=== PATIENT | female | born 1960 | race Caucasian/White ===

== ENCOUNTER 2021-03-22 06:07 | Observation (INO) ==
[2021-03-22] MEDS ORDERED: cefOXitin 2,000 MG in Water for inj. (sterile) 10 ML IVP ONE (06:25)
[2021-03-22] MEDS ORDERED: Ringers Solution, Lactated 1,000 ML IVC SCH (06:30)
[2021-03-22] MEDS ORDERED: *HR* HYDROmorphone PF 0.5 MG/0.5 ML SYRINGE IVP PRN (07:10)
[2021-03-22] MEDS ORDERED: *HR* FentaNYL (PF) 100 MCG/2 ML VIAL ONE ×3 (07:15→12:52)
[2021-03-22] MEDS ORDERED: *HR* Propofol 200 MG/20 ML VIAL IVP ONE (07:15)
[2021-03-22] MEDS ORDERED: *HR* Midazolam HCl 2 MG/2 ML VIAL ONE (07:15)
[2021-03-22] MEDS ORDERED: Scopolamine Patch 1.5 MG PATCH.TD72 TD ONE (07:16)
[2021-03-22] MEDS ORDERED: Lidocaine -MPF 2% 2 ML VIAL ONE (07:16)
[2021-03-22] MEDS ORDERED: Ondansetron 4 MG/2 ML VIAL ONE (07:16)
[2021-03-22] MEDS ORDERED: *HR* Rocuronium Bromide 50 MG/5 ML VIAL ONE (07:16)
[2021-03-22] MEDS ORDERED: Lidocaine HCL 4 ML Topical Solution (Laryng-O-Jet Kit Sterile Pak) TP ONE (07:16)
[2021-03-22] MEDS ORDERED: Acetaminophen IV 1,000 MG/100 ML BAG IVPB ONE (07:18)
[2021-03-22] MEDS ORDERED: Lidocaine/EPI 1:100k 1% 30 ML VIAL ONE (07:29)
[2021-03-22] MEDS ORDERED: *HR* Belladonna Alkaloids/Opium 30 MG RECTAL SUPPOSITORY RC ONE (07:30)
[2021-03-22] MEDS ORDERED: *HR* Remifentanil 1 MG VIAL IVP ONE (07:38)
[2021-03-22] MEDS ORDERED: Sugammadex Sodium 200 MG/2 ML VIAL IV ONE (09:04)
[2021-03-22] MEDS ORDERED: *HR* HYDROMORPHONE 2 MG/ML VIAL ONE (09:05)
[2021-03-22] MEDS ORDERED: Ketorolac 30 MG/ML VIAL ONE (09:07)
[2021-03-22] MEDS ORDERED: Ondansetron 4 MG/2 ML VIAL IVP PRN (10:43)
[2021-03-22] MEDS ORDERED: Sennosides 8.6 MG TABLET PO PRN (10:43)
[2021-03-22] MEDS ORDERED: Naloxone 0.4 MG/ML INJ IVP PRN (10:43)
[2021-03-22] MEDS: *HR* OxyCODONE Immed Rel 5 MG TABLET PO PRN ×3 (11:26→20:24)
[2021-03-22] MEDS: Ringers Solution, Lactated 1,000 ML IVC SCH ×2 (11:30→20:27)
[2021-03-22] MEDS ORDERED: Acetaminophen 325 MG TABLET PO SCH (12:00)
[2021-03-22] MEDS ORDERED: Ibuprofen 600 MG TABLET PO SCH (15:00)
[2021-03-22] MEDS: Famotidine 20 MG TABLET PO SCH (20:26)
[2021-03-23] MEDS: *HR* OxyCODONE Immed Rel 5 MG TABLET PO PRN ×4 (04:11→21:39)
[2021-03-23 04:56] LABS: Basophils % 0.1 %; Hematocrit 40.5 % (35.3-44.9); Immature Granulocytes % 0.8 % (0-4); Lymphocytes # 1.2 K/mcL (0.6-4.6); Lymphocytes % 7.9 %; Mean Corpuscular HGB Conc 30.1 g/dL (31.6-35.5); Mean Corpuscular Volume 89.6 fL (83.0-100.0); Mean Platelet Volume 9.5 fL (9.4-12.4); Monocytes # 0.8 K/mcL (0.0-1.3); Neutrophils # 13.4 K/mcL (1.6-8.9); Platelet Count 222 K/mcL (140-400); Red Blood Count 4.52 M/mcL (3.82-4.97); Red Cell Distribution Width 14.3 % (11.5-14.5); Segmented Neutrophils % 86.2 %; White Blood Count 15.6 K/mcL (4.3-11.1)
[2021-03-23 04:58] LABS: Hemoglobin 12.2 g/dL (11.5-15.4)
[2021-03-23] MEDS ORDERED: Simethicone 80 MG TAB.CHEW PO PRN (07:34)
[2021-03-23] MEDS: Cholecalciferol (D-3) 1,000 UNIT (25MCG) TABLET PO SCH (08:54)
[2021-03-23] MEDS: BuPROPion SR (12 HR) 150 MG TABLET PO SCH (08:54)
[2021-03-23] MEDS: Famotidine 20 MG TABLET PO SCH ×2 (08:56→21:39)
[2021-03-23] MEDS ORDERED: Menthol 1 EACH LOZENGE PO PRN (21:41)
[2021-03-24 00:54] VITALS: BP 101/54; PULSE 69; TEMP 98; O2SAT 94
[2021-03-24] MEDS: Famotidine 20 MG TABLET PO SCH (07:33)
[2021-03-24] MEDS: BuPROPion SR (12 HR) 150 MG TABLET PO SCH (08:03)
[2021-03-24] MEDS: Cholecalciferol (D-3) 1,000 UNIT (25MCG) TABLET PO SCH (08:03)
[2021-03-24] MEDS: *HR* OxyCODONE Immed Rel 5 MG TABLET PO PRN (08:06)
== END 2021-03-24 13:18 | disposition home or self-care (01) ==
LOC: 1NENUPED 06:07 → SAMDAY 06:07 → 1NENUPED 10:44
PROVIDERS: ADMIT Student in an Organized Health Care Education/Training Program; ATTEND Student in an Organized Health Care Education/Training Program